=== PATIENT | male | born 1945 | race Caucasian/White ===

== ENCOUNTER 2025-08-20 09:18 | Outpatient (CLI) | payer OTHER ==
[2025-08-20 10:44] LABS: Hematocrit 33.7 % (38.8-50.0); Hemoglobin 11.0 g/dL (13.5-17.5); Mean Corpuscular Hemoglobin 26.8 pg (27.0-33.0); Mean Corpuscular Volume 82.0 fL (81.2-95.1); Platelet Count 280 10x3/uL (150-450); Red Blood Cell (RBC) Count 4.11 10x6/uL (4.32-5.72); White Blood Cell (WBC) Count 7.63 10x3/uL (3.5-10.5)
== END 2025-08-20 09:19 | disposition home or self-care (01) ==
LOC: CSHLAB 09:18
PROVIDERS: ATTEND Surgery
DX: Z01.818 Encounter for other preprocedural examination (principal); D50.0 Iron deficiency anemia secondary to blood loss (chronic)
CPT/HCPCS: 85027; 93005; 93010